=== PATIENT | female | born 1990 | race Caucasian/White ===

== ENCOUNTER 2021-03-09 03:30 | Observation (INO) | payer OTHER, SELFPAY ==
[2021-03-09 03:49] VITALS: BMI 25.9
[2021-03-09] MEDS ORDERED: Ondansetron PF 4 MG/2 ML Vial IVP PRN ×2 (04:22→06:05)
[2021-03-09] MEDS ORDERED: Ondansetron PF 4 MG/2 ML Vial IVP SCH (04:30)
[2021-03-09] MEDS ORDERED: Lactated Ringer's 1,000 ML IV SCH ×2 (04:30→06:15)
[2021-03-09 05:00] LABS: Bilirubin Neg (Negative); Blood, Urine Negative (Negative); Clarity Clear (Clear); Glucose, Urine (Dipstick) Normal (Negative); Ketone, Urine Negative (Negative); Leukocyte Negative (Negative); Nitrite Negative (Negative); Protein, Urine (Dipstick) Negative (Neg-Trace); Urobilinogen Normal mg/dL (Less than 2)
[2021-03-09 05:08] LABS: Urine Culture Reflex No No
[2021-03-09 05:22] LABS: RBC/HPF 0-3 HPF (0-3); Squamous Epithelial 0-3 HPF (0-3)
[2021-03-09 05:23] LABS: Bacteria/HPF 1+ HPF (None Seen)
[2021-03-09 05:41] LABS: FFN Internal QC Analyzer PASS (PASS); FFN Internal QC Cassette PASS (PASS); Fetal Fibronectin Negative (Negative)
[2021-03-09] MEDS ORDERED: Magnesium Sulfate 6 GM in Sodium Chloride 0.9% 250 ML 250 ML IVPB SCH (05:45)
[2021-03-09] MEDS ORDERED: INDOMETHACIN SODIUM TRIHYDRATE IVPB SCH (05:45)
[2021-03-09] MEDS ORDERED: Magnesium Sulfate 20 gm/500 ml 20 GM/500 ML BAG ONE (06:02)
[2021-03-09] MEDS ORDERED: Betamet Acet/Betamet Na Ph 30 MG/5 ML VIAL ONE (06:02)
[2021-03-09] MEDS ORDERED: Docusate 100 MG CAP PO PRN (06:05)
[2021-03-09] MEDS ORDERED: hydrALAZINE 20 MG/ML VIAL SLOW IVP PRN (06:05)
[2021-03-09] MEDS ORDERED: Promethazine HCl 25 MG/ML VIAL IM PRN (06:05)
[2021-03-09] MEDS ORDERED: Butorphanol Tartrate 1 MG/ML VIAL SLOW IVP PRN (06:05)
[2021-03-09] MEDS ORDERED: Acetaminophen 500 MG TAB PO PRN (06:05)
[2021-03-09] MEDS: Betamet Acet/Betamet Na Ph 30 MG/5 ML VIAL IM SCH (06:10)
[2021-03-09 06:41] LABS: Hemoglobin 12.9 g/dL (12.0-15.5); Mean Corpuscular HGB CONC 34.5 g/dL (32.0-36.0); Mean Corpuscular Hemoglobin 31.4 pg (27.0-33.0); Mean Platelet Volume 10.2 fl (7.4-10.4); Platelet Count 216 10x3/uL (150-450); RBC Distribution Width 13.3 % (11.5-14.5); Red Blood Cell (RBC) Count 4.11 10x6/uL (3.90-5.03); White Blood Cell (WBC) Count 18.3 10x3/uL (3.5-10.5)
[2021-03-09 07:17] LABS: Syphilis Antibody Nonreactive (Nonreactive); Syphilis Antibody Index 0.05 S/CO (<1.00 Non-Reactive)
[2021-03-09 07:19] LABS: Hep B Surf Ag Non-Reactive S/CO (NonReactive)
[2021-03-09 07:27] LABS: HBSAg Index 0.22 S/CO (0-0.99)
[2021-03-09] MEDS ORDERED: Indomethacin 25 mg Capsule PO SCH ×2 (08:00→12:00)
[2021-03-09] MEDS: Magnesium Sulfate 20 gm/500 ml 20 GM/500 ML BAG IVPB SCH ×2 (14:12→23:34)
[2021-03-09] MEDS: CEFAZOLIN 1 GM in Sodium Chloride 0.9% 100 ML IVPB SCH (19:34)
[2021-03-09 20:56] LABS: SARS-CoV-2 PCR by NAA Not Detected (NotDetected)
[2021-03-10] MEDS: CEFAZOLIN 1 GM in Sodium Chloride 0.9% 100 ML IVPB SCH (03:10)
[2021-03-10] MEDS: Betamet Acet/Betamet Na Ph 30 MG/5 ML VIAL IM SCH (06:10)
== END 2021-03-10 17:32 | disposition home health service, planned readmission (86) ==
LOC: CSHLD/OP 03:30 → CSHLD 06:05
PROVIDERS: ADMIT Student in an Organized Health Care Education/Training Program; ATTEND Student in an Organized Health Care Education/Training Program
DX: O47.03 False labor before 37 completed weeks of gestation, third trimester (principal); O21.2 Late vomiting of pregnancy; O99.891 Other specified diseases and conditions complicating pregnancy; R19.7 Diarrhea, unspecified; O32.1XX0 Maternal care for breech presentation, not applicable or unspecified; Z3A.31 31 weeks gestation of pregnancy; Z20.822 Contact with and (suspected) exposure to COVID-19
CPT/HCPCS: 36415; 81001; 82731; 85027; 86780; 86850; 86900; 86901; 87081; 87086; 87340; 87635; 96372; 96374; 96375; 96376; 99285; G0378; J0690; J0702; J2405; J3475; J3490; U0003; U0005